=== PATIENT | female | born 1945 | race Caucasian/White ===

== ENCOUNTER 2018-06-22 09:31 | Emergency (ER) | payer OTHER ==
[~2018-06-22] VITALS: Ht 157.5 cm; Wt 67.6 kg
[2018-06-22] MEDS ORDERED: AVALIDE 300-121 EACH (10:03)
[2018-06-22] MEDS ORDERED: HYDROCHLOROTH12.5 M1 (10:03)
== END 2018-06-22 14:04 | disposition home or self-care (01) ==
LOC: ER 09:31
DX: S22.32XA Fracture of one rib, left side, initial encounter for closed fracture (principal); W06.XXXA Fall from bed, initial encounter; Y93.89 Activity, other specified; Y92.89 Other specified places as the place of occurrence of the external cause; Y99.8 Other external cause status

== ENCOUNTER 2018-07-02 19:11 | Emergency (ER) | payer OTHER ==
[~2018-07-02] VITALS: Ht 157.5 cm; Wt 67.6 kg
[~2018-07-02 19:11] MED LIST: AVALIDE 300-121 EACH; HYDROCHLOROTH12.5 M1
[2018-07-02] MEDS ORDERED: SIMVASTATIN5 MG (19:29)
== END 2018-07-02 21:45 | disposition home or self-care (01) ==
LOC: ER 19:11
DX: R42 Dizziness and giddiness (principal); R53.81 Other malaise; M62.830 Muscle spasm of back; T48.1X5A Adverse effect of skeletal muscle relaxants [neuromuscular blocking agents], initial encounter; Y92.89 Other specified places as the place of occurrence of the external cause